=== PATIENT | male | born 1955 | race Caucasian/White ===

== ENCOUNTER → 2019-03-11 13:16 | Outpatient (REF) | payer OTHER, SELFPAY | LOC: ANHLAB 13:16 | PROVIDERS: PCP Internal Medicine; Visit Provider Nurse Practitioner Family | DX: C44.311 Basal cell carcinoma of skin of nose (principal) | CPT/HCPCS: 88305 ==

== ENCOUNTER 2019-04-10 00:21 | Day surgery (SDC) | payer OTHER, SELFPAY ==
[2019-04-02 11:54] VITALS: BMI 30.4
[2019-04-10] VITALS (17 sets, daily range): BP systolic 153–230; BP diastolic 78–108; PULSE 64–112; RESP 16–22; TEMP 35.9–36.1; O2SAT 90–98
[2019-04-10] MEDS: LACTATED RINGERS 1,000 ML 30 ML IV CONT ×3 (06:40→13:16)
--- NOTE | 2019-04-10 08:38 | WPDHPUPDATE1 ---
History and Physical Update Update Date/Time: 04/10/19 08:38 History and Physical has been reviewed, including an updated exam of the patient. There are NO changes in the patient's condition. Will proceed with excision BCC right upper lip and BCC right ala with closure vs FTSG vs local tissue transfer. Risks, benefits, and alternatives have been discussed and questions answered. Patient agrees to proceed with procedure.
--- NOTE | 2019-04-10 08:56 | WPDANESEPPF ---
Anes - Initial Pre Proc Eval Procedure: Operation Date: 04/10/19 08:30 Proposed Procedures p Excision Basal Cell Carcinoma Right Upper Lip With Frozen Section, Excision Basal Cell Carcinoma Right Nasal Ala With Frozen Section With Full Thickness Skin Graft, Full Thickness Or Local Tissue Transfer For Closure - Stef Wiseman MD Date/Time: 04/10/19 08:56 Surgeon: Stef Wiseman MD Pre Op Diagnosis: BCC Rt Upper Lip/ Rt Nasal Ala Patient Data Age: 64 Gender: M Height: 5 ft 8 in Weight: 89.9 kg Last Vital Signs Temp 35.9 C L 04/10/19 06:43 Pulse 74 04/10/19 07:21 Resp 20 04/10/19 07:21 BP 195/91 H 04/10/19 07:21 Pulse Ox 94 04/10/19 07:21 Allergies Allergy/AdvReac Type Severity Reaction Status Date / Time No Known Allergies Allergy Verified 04/10/19 07:09 Home Medications Medication Instructions Recorded Confirmed Type No Home Medications 03/11/19 04/10/19 History Patient hx anesthesia problems: none Family hx anesthesia problems: none PMFSH Surgical History Surgical History History of cataract extraction 2018 Family History Family History Father Cancer Sibling Skin cancer Social History Social History Smoking status: Never smoker Alcohol intake: current Anes - Eval Final PreProcedure Day of Procedure 04/10/19 08:56 Patient weight: overweight Heart: regular rate and rhythm Lungs: clear to auscultation Airway: Mallampati scale class II Neurological: alert and oriented Last oral intake: >/= 8 hours ASA classification: II Emergent: no Anesthetic plan: proceed Anesthesia type and monitoring: general GIVS and standard monitoring Informed Consent: The patient's anesthetic plan and its attendant risks and benefits were discussed with the patient/family/POA. Questions were solicited and answers provided to the satisfaction of the patient/family/POA.
[2019-04-10] MEDS: ceFAZolin 2 GM/D5W 50 ML 2 GM/50 ML BAG IVPB (09:09)
[2019-04-10] MEDS: LIDO 1%/EPINEPHRINE 1:100,000 20 ML VIAL 10 ML INFILTRATE (09:52)
[2019-04-10] MEDS: ceFAZolin SODIUM 1 GM VIAL IM (12:59)
--- NOTE | 2019-04-10 13:02 | SUR.OPER ---
EBL:25CC
[2019-04-10] MEDS: hydrALAZINE HCL 20 MG/ML VIAL 10 MG IV PUSH (13:52)
[2019-04-10 15:37] LABS: Glucose Point of Care 192 (65-105)
--- NOTE | 2019-04-10 17:42 | PM.PROC ---
Procedure Note - Detailed Date of procedure: 04/10/19 Pre-op diagnosis: BCC Rt Upper Lip/ Rt Nasal Ala Post-op diagnosis: same Procedure performed: Excision right nasal ala, upper lip, cheek BCC with frozen section measuring 10.5 cm. Description of procedure: Preoperatively the risks, benefits, alternatives were discussed in extensive detail. I want him to be very realistic about the risks involved as well as expectations. Made sure answered all his questions to his and his 's satisfaction and consent obtained. Patient was marked in the preoperative holding area with her verification. He was taken to the operating room placed supine on operating table. Anesthesia was provided by anesthesiology and prepped and draped in a standard sterile fashion. Surgical time-out was taken. 1% lidocaine and 0.25% Marcaine with epinephrine was used anesthetize locally. I began the resection just was obvious. All these margins were positive and a continued resection until we had margins. At the end of the procedure this was a very large defect involving the right ala the upper lip as well as cheek. We elected to wait on permanent section. I do know the deep is still positive centrally. Per pathology the remainder of these borders are negative. Opening the deep margin centrally would have created a full through and through defect of the left and been difficult to manage until were able to get final pathology and proceed with reconstruction. I created a tie-over bolster with Xeroform and cotton which was sutured into place with 4-0 nylon. Postoperatively had a discussion with the inquiring how long this has been here. She states really only showed about 4-5 months ago and he delayed having treatment because he was going to retire in January and he knew this could have a change in appearance. She states he did have a mustache however at the time as well. Anesthesia: GETA Surgeon: Stef Wiseman MD Estimated blood loss (mL): 25 Drains: No Packing: Yes (Tie-over bolster) Pathology: yes (BCC) Complications: No immediate complications Condition: stable Disposition: PACU
--- NOTE | 2019-04-13 09:38 | SUR.PHASEII ---
due to computer issue on 04/10/19 documentation completed for Mai Shi by manager intelligence Rhina Mann at time of this note, from 04/10/19 per Mai patient awake alertx3 resp WNL skin intact during her care and same at time of discharge, patient ambulated to bathroom with no problems, Dr Dempsey had given 10mg IV Hydralazine and instructed patient to follow up with primary care related to elevated BP patient stated does not have a primary and does not plan to follow up. discharged per anesthesia,
== END 2019-04-10 16:50 | disposition home or self-care (01) ==
PROVIDERS: PCP Internal Medicine; Visit Provider Surgery Plastic and Reconstructive Surgery
PROC: (CPT 11646; principal; 2019-04-10 08:30)
DX: C44.81 Basal cell carcinoma of overlapping sites of skin (principal); Z85.828 Personal history of other malignant neoplasm of skin
CPT/HCPCS: 11646; 88305; 88331; 88332; J0131; J0330; J0360; J0690; J1100; J1170; J2250; J2405; J2704; J3010; J7120